=== PATIENT | female | born 1950 | race American Indian/Alaskan Native ===

== ENCOUNTER 2020-02-20 13:39 | Observation (INO) | payer MEDICARE ==
[2020-02-20 14:32] LABS: Basophils # (Auto) 0.1 K/mm3 (0.0-0.1); Basophils % (Auto) 0.8 % (0.0-1.8); Eosinophils # (Auto) 0.1 K/mm3 (0.0-0.4); Eosinophils % (Auto) 0.6 % (0.0-4.3); Hematocrit 29.5 % (30.3-42.9); Lymphocytes # (Auto) 1.2 K/mm3 (1.2-5.4); Lymphocytes % (Auto) 10.9 % (13.4-35.0); Mean Corpuscular HGB Conc 31 % (30-34); Mean Corpuscular Volume 95 fl (79-97); Monocytes # (Auto) 0.9 K/mm3 (0.0-0.8); Monocytes % (Auto) 7.9 % (0.0-7.3); Red Blood Count 3.11 M/mm3 (3.65-5.03)
[2020-02-20 14:36] LABS: Red Cell Distribution Width 20.2 % (13.2-15.2)
[2020-02-20 15:05] LABS: Platelet Count 164 K/mm3 (140-440)
[2020-02-20 15:18] LABS: Albumin 2.9 g/dL (3.9-5); Calcium 10.2 mg/dL (8.4-10.2)
--- NOTE | 2020-02-20 16:40 | Emergency Department Report ---
ED General Adult HPI - General Chief complaint: Recheck/Abnormal Lab/Rx Stated complaint: DIALYSIS Time Seen by Provider: 02/20/20 16:22 Source: EMS Mode of arrival: Stretcher Limitations: Physical Limitation - History of Present Illness Initial comments: Patient is 69 years old female with history of hypertension, diabetes and end- stage renal disease on hemodialysis. Patient brought to the emergency room via EMS from [place] [facility] for evaluation that patient missed her dialysis today. When asked the patient why did she miss her dialysis she stated that nobody woke up for dialysis today. Patient is currently denying any symptoms. She denies any shortness of breath, chest pain, fever or chills. -: days(s) - Related Data Home Medications Medication Instructions Recorded Confirmed Last Taken AtorvaSTATin [Lipitor] 20 mg PO QHS 08/05/15 08/05/15 Unknown Calcium Carbonate [Calcium 600MG 600 mg PO DAILY 08/05/15 08/05/15 Unknown TAB] Docusate Sodium [Colace CAP] 100 mg PO BID PRN 08/05/15 08/05/15 Unknown Ergocalciferol [Vitamin D2] 1 cap PO QWEEK 08/05/15 08/05/15 Unknown Insulin Glargine [Lantus VIAL] 10 unit SUB-Q QHS 08/05/15 08/05/15 Unknown Insulin Regular, Human Inj 0 unit SQ QAM 08/05/15 08/05/15 Unknown [NovoLIN R Inj] Magnesium Oxide [Mag-Ox] 400 mg PO QDAY 08/05/15 08/05/15 Unknown Metoclopramide HCl [Reglan TAB] 5 mg PO QID 08/05/15 08/05/15 Unknown Omeprazole [PriLOSEC] 40 mg PO QDAY 08/05/15 08/05/15 Unknown Promethazine [Phenergan] 25 mg PO Q6HR PRN 08/05/15 08/05/15 Unknown Sodium Bicarbonate 650 mg PO BID 08/05/15 08/05/15 Unknown Vit B Comp No.3/Folic/C/Biotin 1 each PO DAILY 08/05/15 08/05/15 Unknown [Antonette-Annette Rx Tablet] Warfarin [Coumadin] 5 mg PO QDAY 08/05/15 08/05/15 Unknown Warfarin [Coumadin] 7.5 mg PO QDAY 08/05/15 08/05/15 Unknown Previous Rx's Medication Instructions Recorded Last Taken Type AtorvaSTATin [Lipitor] 20 mg PO QHS tablet 08/07/15 Unknown Rx Allergies Allergy/AdvReac Type Severity Reaction Status Date / Time acetaminophen [From Percocet] Allergy Vomiting Verified 08/05/15 15:21 aspirin Allergy Unknown Verified 08/05/15 15:21 dipyridamole [From Aggrenox] Allergy Unknown Verified 08/05/15 15:21 egg Allergy Swelling Verified 08/05/15 14:58 influenza virus vaccine, Allergy Swelling Verified 08/05/15 14:57 specific [influenza virus vacc,specific] lactose Allergy Vomiting Verified 08/05/15 15:21 latex Allergy Rash Verified 08/05/15 15:21 meperidine HCl [From Demerol] Allergy Hives Verified 08/05/15 14:57 oxycodone HCl [From Percocet] Allergy Vomiting Verified 08/05/15 15:21 Penicillins Allergy Unknown Verified 08/05/15 14:57 ED Review of Systems ROS: Stated complaint: DIALYSIS Other details as noted in HPI Comment: All other systems reviewed and negative Constitutional: denies: chills, fever Respiratory: denies: cough, shortness of breath, SOB with exertion, SOB at rest, wheezing Cardiovascular: denies: chest pain, palpitations Gastrointestinal: denies: abdominal pain, nausea Neurological: denies: headache ED Past Medical Hx - Past Medical History Hx Hypertension: Yes Hx Diabetes: Yes (IDDM) Hx Renal Disease: Yes (ESRD w/ HD ,,Mon) Additional medical history: Afib, Anemia - Surgical History Additional Surgical History: Hysterectomy, Bilateral Rotator Cuff surgery, Vas Cath (Right upper Chest), Left arm fistula and AV graft - Social History Smoking Status: Current Some Day Smoker Substance Use Type: Alcohol - Medications Home Medications: Home Medications Medication Instructions Recorded Confirmed Last Taken Type AtorvaSTATin [Lipitor] 20 mg PO QHS 08/05/15 08/05/15 Unknown History Calcium Carbonate [Calcium 600MG 600 mg PO DAILY 08/05/15 08/05/15 Unknown History TAB] Docusate Sodium [Colace CAP] 100 mg PO BID PRN 08/05/15 08/05/15 Unknown History Ergocalciferol [Vitamin D2] 1 cap PO QWEEK 08/05/15 08/05/15 Unknown History Insulin Glargine [Lantus VIAL] 10 unit SUB-Q QHS 08/05/15 08/05/15 Unknown History Insulin Regular, Human Inj 0 unit SQ QAM 08/05/15 08/05/15 Unknown History [NovoLIN R Inj] Magnesium Oxide [Mag-Ox] 400 mg PO QDAY 08/05/15 08/05/15 Unknown History Metoclopramide HCl [Reglan TAB] 5 mg PO QID 08/05/15 08/05/15 Unknown History Omeprazole [PriLOSEC] 40 mg PO QDAY 08/05/15 08/05/15 Unknown History Promethazine [Phenergan] 25 mg PO Q6HR PRN 08/05/15 08/05/15 Unknown History Sodium Bicarbonate 650 mg PO BID 08/05/15 08/05/15 Unknown History Vit B Comp No.3/Folic/C/Biotin 1 each PO DAILY 08/05/15 08/05/15 Unknown History [Antonette-Annette Rx Tablet] Warfarin [Coumadin] 5 mg PO QDAY 08/05/15 08/05/15 Unknown History Warfarin [Coumadin] 7.5 mg PO QDAY 08/05/15 08/05/15 Unknown History AtorvaSTATin [Lipitor] 20 mg PO QHS tablet 08/07/15 Unknown Rx ED Physical Exam - General Limitations: Physical Limitation General appearance: alert, in no apparent distress - Head Head exam: Present: atraumatic, normocephalic, normal inspection - Eye Eye exam: Present: normal appearance - ENT ENT exam: Present: normal exam, normal orophraynx, mucous membranes moist - Neck Neck exam: Present: normal inspection, full ROM. Absent: tenderness, meningismus - Respiratory Respiratory exam: Present: normal lung sounds bilaterally - Cardiovascular Cardiovascular Exam: Present: regular rate, systolic murmur - GI/Abdominal GI/Abdominal exam: Present: soft. Absent: distended, tenderness, guarding, rebound - Neurological Exam Neurological exam: Present: alert, oriented X3 - Psychiatric Psychiatric exam: Present: normal mood - Skin Skin exam: Present: warm, intact, normal color ED Course Vital Signs 02/20/20 02/20/20 02/20/20 14:01 14:06 14:16 Temperature 97.5 F L Pulse Rate 74 Respiratory 18 18 Rate Blood Pressure 134/57 O2 Sat by Pulse 95 95 100 Oximetry 02/20/20 02/20/20 02/20/20 14:26 14:30 14:36 Temperature Pulse Rate Respiratory Rate Blood Pressure 143/48 136/46 136/46 O2 Sat by Pulse 100 96 100 Oximetry 02/20/20 02/20/20 02/20/20 14:40 14:45 14:52 Temperature Pulse Rate Respiratory Rate Blood Pressure 136/46 102/27 102/27 O2 Sat by Pulse 98 99 76 L Oximetry 02/20/20 02/20/20 02/20/20 14:56 15:01 15:06 Temperature Pulse Rate Respiratory Rate Blood Pressure 102/27 103/37 103/37 O2 Sat by Pulse 94 100 Oximetry 02/20/20 02/20/20 02/20/20 15:10 15:15 15:20 Temperature Pulse Rate Respiratory Rate Blood Pressure 103/37 103/36 103/36 O2 Sat by Pulse 100 98 99 Oximetry 02/20/20 02/20/20 02/20/20 15:26 15:30 15:36 Temperature Pulse Rate Respiratory Rate Blood Pressure 103/36 111/39 111/39 O2 Sat by Pulse 100 100 100 Oximetry 02/20/20 02/20/20 02/20/20 15:40 15:45 15:50 Temperature Pulse Rate Respiratory Rate Blood Pressure 127/72 119/36 119/36 O2 Sat by Pulse 90 99 99 Oximetry 02/20/20 15:56 Temperature Pulse Rate Respiratory Rate Blood Pressure 119/36 O2 Sat by Pulse 98 Oximetry ED Medical Decision Making - Lab Data Result diagrams: 02/20/20 14:11 02/20/20 14:11 - Medical Decision Making Patient is 69 years old female with history of hypertension, diabetes and end- stage renal disease on hemodialysis. Patient brought to the emergency room via EMS from [place] [facility] for evaluation that patient missed her dialysis today. When asked the patient why did she miss her dialysis she stated that nobody woke up for dialysis today. Patient is currently denying any symptoms. She denies any shortness of breath, chest pain, fever or chills. Labs reviewed and showed a potassium of 5.6. I discussed the patient with Dr. Covarrubias, ingot weigher, she stated that she will put dialysis order. I discussed the patient with Dr. Armando, he agreed to admit the patient to medical service for further management. Critical Care Time: Yes Critical care time in (mins) excluding proc time.: 30 Critical care attestation.: If time is entered above; I have spent that time in minutes in the direct care of this critically ill patient, excluding procedure time. ED Disposition Clinical Impression: Acute hyperkalemia, End-stage renal disease needing dialysis Disposition: OP ADMIT IP TO THIS HOSP Is pt being admited?: Yes Condition: Stable Referrals: PRIMARY CARE, [Primary Care Provider] - 3-5 Days
[2020-02-20] MEDS ORDERED: SODIUM CHLORIDE 0.9% 100 ML IV PRN (16:51)
[2020-02-20] MEDS ORDERED: ONDANSETRON 4 MG/2 ML INJ IV PRN (17:14)
[2020-02-20] MEDS ORDERED: MAGNESIUM HYDROXIDE (MOM) ORAL LIQD UDC PO PRN (17:14)
[2020-02-20 19:07] LABS: Hepatitis B Surface Antigen Non-Reactive (Negative); Hepatitis C Virus Antibody Non-Reactive (NonReactive)
--- NOTE | 2020-02-20 20:47 | History and Physical Report ---
History of Present Illness Date of admission: 02/20/20 17:14 Chief complaint: Nobody woke my up to go get dialysis History of present illness: 69 YO Female Longterm Facility Resident at [facility] with ESRD on HD(T,R,Sa), DM, GERD, HLD, Nicotine Dependence, Atrial Fib on t herapeutic anticoagulation, Anemia of chronic disease presents to ED for evaluation. Pt states that she missed her routine scheduled dialysis session today. Patient states that "no one woke me up" EMS was notified and upon arrival the patient was found to have missed her routine dialysis session. Patient transported to [facility] for further care and evaluation. Patient seen and evaluated in the emergency department. Lab and imaging studies reviewed. Patient found to have end-stage renal disease in need of dialysis. Nephrology team consulted in ED. Patient placed in observation status and admitted to medical floor for further evaluation. Patient denies fever, chills, chest pain, palpitations, shortness of breath, productive cough, recent ill contacts, or known exposure to COVID-19. No prior admission for review. All medication listed at time of admission has been reconciled. Advanced care planning conducted in ED. Past History Past Medical History: atrial fib, diabetes, ESRD, GERD Past Surgical History: hysterectomy, Other ( Bilateral Rotator Cuff surgery, Vas Cath (Right upper Chest), Left arm fistula and AV graft) Social history: , smoking. denies: alcohol abuse, prescription drug abuse Family history: hypertension Medications and Allergies Allergies Allergy/AdvReac Type Severity Reaction Status Date / Time acetaminophen [From Percocet] Allergy Vomiting Verified 08/05/15 15:21 aspirin Allergy Unknown Verified 08/05/15 15:21 dipyridamole [From Aggrenox] Allergy Unknown Verified 08/05/15 15:21 egg Allergy Swelling Verified 08/05/15 14:58 influenza virus vaccine, Allergy Swelling Verified 08/05/15 14:57 specific [influenza virus vacc,specific] lactose Allergy Vomiting Verified 08/05/15 15:21 latex Allergy Rash Verified 08/05/15 15:21 meperidine HCl [From Demerol] Allergy Hives Verified 08/05/15 14:57 oxycodone HCl [From Percocet] Allergy Vomiting Verified 08/05/15 15:21 Penicillins Allergy Unknown Verified 08/05/15 14:57 Home Medications Medication Instructions Recorded Confirmed Last Taken Type AtorvaSTATin [Lipitor] 20 mg PO QHS 08/05/15 08/05/15 Unknown History Calcium Carbonate [Calcium 600MG 600 mg PO DAILY 08/05/15 08/05/15 Unknown History TAB] Docusate Sodium [Colace CAP] 100 mg PO BID PRN 08/05/15 08/05/15 Unknown History Ergocalciferol [Vitamin D2] 1 cap PO QWEEK 08/05/15 08/05/15 Unknown History Insulin Glargine [Lantus VIAL] 10 unit SUB-Q QHS 08/05/15 08/05/15 Unknown Histo ry Insulin Regular, Human Inj 0 unit SQ QAM 08/05/15 08/05/15 Unknown History [NovoLIN R Inj] Magnesium Oxide [Mag-Ox] 400 mg PO QDAY 08/05/15 08/05/15 Unknown History Metoclopramide HCl [Reglan TAB] 5 mg PO QID 08/05/15 08/05/15 Unknown History Omeprazole [PriLOSEC] 40 mg PO QDAY 08/05/15 08/05/15 Unknown History Promethazine [Phenergan] 25 mg PO Q6HR PRN 08/05/15 08/05/15 Unknown History Sodium Bicarbonate 650 mg PO BID 08/05/15 08/05/15 Unknown History Vit B Comp No.3/Folic/C/Biotin 1 each PO DAILY 08/05/15 08/05/15 Unknown History [Antonette-Annette Rx Tablet] Warfarin [Coumadin] 5 mg PO QDAY 08/05/15 08/05/15 Unknown History Warfarin [Coumadin] 7.5 mg PO QDAY 08/05/15 08/05/15 Unknown History AtorvaSTATin [Lipitor] 20 mg PO QHS tablet 08/07/15 Unknown Rx Active Meds: Active Medications Bisacodyl (Dulcolax) 10 mg MS QDAY PRN PRN Reason: Constipation unrelieved by MOM Folic Acid (Folvite) 1 mg PO QDAY [facility] Sodium Chloride (Nacl 0.9%) 100 mls @ 999 mls/hr IV ANGY PRN PRN Reason: Hypotension Magnesium Hydroxide (Milk Of Magnesia) 30 ml PO Q4H PRN PRN Reason: Constipation Multivitamins (Theragran Tab) 1 each PO QDAY [facility] Ondansetron HCl (Zofran) 4 mg IV Q8H PRN PRN Reason: Nausea And Vomiting Senna (Senokot) 17.2 mg PO QHS BRANDIN Review of Systems Constitutional: no weight loss, no weight gain, no fever, no chills Ears, nose, mouth and throat: no ear pain, no ear discharge, no tinnitis, no nose pain, no nasal congestion, no nasal discharge Breasts: no change in shape Cardiovascular: no chest pain, no orthopnea, no palpitations, no edema Respiratory: no cough, no excessive sputum, no hemoptysis, no shortness of breath Gastrointestinal: no abdominal pain, no vomiting, no diarrhea, no constipation Genitourinary Female: no pelvic pain, no flank pain, no dysuria, no urinary frequency, no urgency Rectal: no pain, no incontinence, no bleeding Musculoskeletal: no neck stiffness, no low back pain, no shooting leg pain Integumentary: no rash, no redness, no wounds, no jaundice Neurological: no transient paralysis, no weakness, no numbness, no seizures, no syncope Psychiatric: no anxiety, no sleep disturbances, no hypersomnia, no change in libido, no suicidal ideation, no disorientation Endocrine: no cold intolerance, no excessive thirst Hematologic/Lymphatic: no easy bruising, no easy bleeding, no lymphadenopathy Allergic/Immunologic: no wheezing, no persistent infections, no angioedema Exam - Constitutional Vitals: Temp Pulse Resp BP Pulse Ox 98.8 F 72 18 105/45 100 02/20/20 17:35 02/20/20 20:15 02/20/20 17:35 02/20/20 20:15 02/20/20 17:10 General appearance: Present: no acute distress, well-nourished - EENT Eyes: Present: PERRL ENT: hearing intact, clear oral mucosa - Neck Neck: Present: supple, normal ROM - Respiratory Respiratory effort: normal Respiratory: bilateral: CTA - Cardiovascular Heart Sounds: Present: S1 & S2. Absent: rub, click - Extremities Extremities: pulses symmetrical, No edema Peripheral Pulses: within normal limits - Abdominal General gastrointestinal: Present: soft, non-tender, non-distended, normal bowel sounds Female genitourinary: Present: normal - Integumentary Integumentary: Present: clear, warm, dry - Musculoskeletal Musculoskeletal: gait normal, strength equal bilaterally - Psychiatric Psychiatric: appropriate mood/affect, intact judgment & insight - Neurologic Neurologic: CNII-XII intact, moves all extremities Results - Labs CBC & Chem 7: 02/20/20 14:11 02/20/20 14:11 Labs: Abnormal lab results 02/20/20 02/20/20 Range/Units 14:11 14:11 RBC 3.11 L (3.65-5.03) M/mm3 Hgb 9.0 L (10.1-14.3) gm/dl Hct 29.5 L (30.3-42.9) % RDW 20.2 H (13.2-15.2) % Lymph % (Auto) 10.9 L (13.4-35.0) % Lucas % (Auto) 7.9 H (0.0-7.3) % Lucas # 0.9 H (0.0-0.8) K/mm3 Seg Neutrophils % 79.8 H (40.0-70.0) % Seg Neutrophils # 8.6 H (1.8-7.7) K/mm3 Potassium 5.6 H (3.6-5.0) mmol/L BUN 34 H (7-17) mg/dL Creatinine 7.5 H (0.6-1.2) mg/dL Glucose 216 H (65-100) mg/dL ALT 5 L (7-56) units/L Alkaline Phosphatase 130 H (35-129) units/L Albumin 2.9 L (3.9-5) g/dL Assessment and Plan - Patient Problems (1) End stage renal disease Current Visit: No Status: Chronic Plan to address problem: Dialysis as per renal team, Nephrology consulted in ED, (2) Atrial fibrillation Current Visit: Yes Status: Acute Qualifiers: Atrial fibrillation type: persistent (not longstanding) Qualified Code(s): I48.19 - Other persistent atrial fibrillation; I48.1 - Persistent atrial fibrillation Plan to address problem: continue therapeutic anticoagulation, continue current therapy, rate controlled (3) Diabetes Current Visit: Yes Status: Acute Plan to address problem: consistent carbohydrate diet, sliding scali insulin, accu check, (4) HTN (hypertension) Current Visit: Yes Status: Acute Qualifiers: Hypertension type: essential hypertension Qualified Code(s): I10 - Essential (primary) hypertension Plan to address problem: monitor bp q shift, continue medical management (5) GERD (gastroesophageal reflux disease) Current Visit: Yes Status: Acute Qualifiers: Esophagitis presence: without esophagitis Qualified Code(s): K21.9 - Gastro-esophageal reflux disease without esophagitis Plan to address problem: ppi therapy, supportive care. (6) DVT prophylaxis Current Visit: Yes Status: Acute Plan to address problem: SCD to BLE while in bed, continue anticoagulation (7) Advance care planning Current Visit: Yes Status: Acute Plan to address problem: Pt is full code, disease education conducted, prognosis discussed, +30 minutes
[2020-02-20] MEDS ORDERED: SENNOSIDES 8.6 MG TAB PO SCH (22:00)
[2020-02-21 06:05] LABS: Calcium 9.8 mg/dL (8.4-10.2)
[2020-02-21] MEDS ORDERED: MULTIVITAMINS ,THERAPEUTIC TAB PO SCH (10:00)
[2020-02-21] MEDS ORDERED: FOLIC ACID 1 MG TAB PO SCH (10:00)
--- NOTE | 2020-02-21 11:00 | Consultation ---
History of Present Illness - Reason for Consult Consult date: 02/21/20 end stage renal disease - History of Present Illness Patient is 69 years old female with history of hypertension, diabetes and end- stage renal disease on hemodialysis at [facility]. Patient brought to the emergency room via EMS from long-term for evaluation that patient missed her dialysis. When asked the patient why did she miss her dialysis she stated that nobody woke up for dialysis. She was admitted yesterday and received dialysis. Presently, patient complains of RLE pain. Past History Past Medical History: atrial fib, diabetes, ESRD, GERD Past Surgical History: hysterectomy, Other ( Bilateral Rotator Cuff surgery, Vas Cath (Right upper Chest), Left arm fistula and AV graft) Social history: , smoking. denies: alcohol abuse, prescription drug abuse Family history: hypertension Medications and Allergies Allergies Allergy/AdvReac Type Severity Reaction Status Date / Time acetaminophen [From Percocet] Allergy Vomiting Verified 08/05/15 15:21 aspirin Allergy Unknown Verified 08/05/15 15:21 dipyridamole [From Aggrenox] Allergy Unknown Verified 08/05/15 15:21 egg Allergy Swelling Verified 08/05/15 14:58 influenza virus vaccine, Allergy Swelling Verified 08/05/15 14:57 specific [influenza virus vacc,specific] lactose Allergy Vomiting Verified 08/05/15 15:21 latex Allergy Rash Verified 08/05/15 15:21 meperidine HCl [From Demerol] Allergy Hives Verified 08/05/15 14:57 oxycodone HCl [From Percocet] Allergy Vomiting Verified 08/05/15 15:21 Penicillins Allergy Unknown Verified 08/05/15 14:57 Home Medications Medication Instructions Recorded Confirmed Last Taken Type AtorvaSTATin [Lipitor] 20 mg PO QHS 08/05/15 08/05/15 Unknown History Calcium Carbonate [Calcium 600MG 600 mg PO DAILY 08/05/15 08/05/15 Unknown History TAB] Docusate Sodium [Colace CAP] 100 mg PO BID PRN 08/05/15 08/05/15 Unknown History Ergocalciferol [Vitamin D2] 1 cap PO QWEEK 08/05/15 08/05/15 Unknown History Insulin Glargine [Lantus VIAL] 10 unit SUB-Q QHS 08/05/15 08/05/15 Unknown History Insulin Regular, Human Inj 0 unit SQ QAM 08/05/15 08/05/15 Unknown History [NovoLIN R Inj] Magnesium Oxide [Mag-Ox] 400 mg PO QDAY 08/05/15 08/05/15 Unknown History Metoclopramide HCl [Reglan TAB] 5 mg PO QID 08/05/15 08/05/15 Unknown History Omeprazole [PriLOSEC] 40 mg PO QDAY 08/05/15 08/05/15 Unknown History Promethazine [Phenergan] 25 mg PO Q6HR PRN 08/05/15 08/05/15 Unknown History Sodium Bicarbonate 650 mg PO BID 08/05/15 08/05/15 Unknown History Vit B Comp No.3/Folic/C/Biotin 1 each PO DAILY 08/05/15 08/05/15 Unknown History [Antonette-Annette Rx Tablet] Warfarin [Coumadin] 5 mg PO QDAY 08/05/15 08/05/15 Unknown History Warfarin [Coumadin] 7.5 mg PO QDAY 08/05/15 08/05/15 Unknown History AtorvaSTATin [Lipitor] 20 mg PO QHS tablet 08/07/15 Unknown Rx Active Meds: Active Medications Bisacodyl (Dulcolax) 10 mg NE QDAY PRN PRN Reason: Constipation unrelieved by MOM Folic Acid (Folvite) 1 mg PO QDAY [facility] Sodium Chloride (Nacl 0.9%) 100 mls @ 999 mls/hr IV ANGY PRN PRN Reason: Hypotension Magnesium Hydroxide (Milk Of Magnesia) 30 ml PO Q4H PRN PRN Reason: Constipation Multivitamins (Theragran Tab) 1 each PO QDAY [facility] Ondansetron HCl (Zofran) 4 mg IV Q8H PRN PRN Reason: Nausea And Vomiting Senna (Senokot) 17.2 mg PO QHS [facility] Last Admin: 02/20/20 22:44 Dose: 17.2 mg Documented by: Review of Systems All systems: negative Exam - Vital Signs Vital signs: Vital Signs Temp Pulse Resp BP Pulse Ox 97.5 F L 74 18 134/57 95 02/20/20 14:01 02/20/20 14:01 02/20/20 14:01 02/20/20 14:01 02/20/20 14:01 - General Appearance General appearance: well-developed, frail EENT: ATNC Respiratory: Clear to Ascultation Heart: regular, S1S2 Gastrointestinal: Present: normal. Absent: tenderness, distended Musculoskeletal: Present: other (RLE bandaged) Results - Lab Results 02/20/20 14:11 02/21/20 05:25 Most recent lab results Calcium 9.8 mg/dL (8.4-10.2) 02/21/20 05:25 Assessment and Plan Impression: * End stage renal disease (TTS at [facility]) * Hyperkalemia, mild - resolved * Atrial fibrillation on chronic anticoagulation * Anemia secondary to ESRD * Secondary hyperparathyroidism Plan * Patient is s/p dialysis yesterday * No acute need for HD today * Continue HD TTS schedule * UF as tolerated * Epogen TIW prn * Renal diet
[2020-02-21 11:32] VITALS: BP 146/51
--- NOTE | 2020-02-21 15:07 | Discharge Summary ---
Providers - Providers Date of Admission: 02/20/20 17:14 Attending physician: HALEIGH DANIEL 02/20/20 16:51 Consult to Physician [CONS] Stat Comment: Consulting Provider: DWIGHT VILLALOBOS Physician Instructions: Reason For Exam: End-stage renal disease needing dialysis, hyperkal 02/21/20 10:55 Consult to Wound/ET Nurse [CONS] Routine Reason For Exam: wound eval to right leg and foot Primary care physician: LILI BLOUNT Hospitalization Condition: Stable - Discharge Diagnoses (1) End stage renal disease Status: Chronic (2) Atrial fibrillation Status: Acute Qualifiers: Atrial fibrillation type: persistent (not longstanding) Qualified Code(s): I48.19 - Other persistent atrial fibrillation; I48.1 - Persistent atrial fibrillation (3) Diabetes Status: Acute (4) HTN (hypertension) Status: Acute Qualifiers: Hypertension type: essential hypertension Qualified Code(s): I10 - Essent ial (primary) hypertension (5) GERD (gastroesophageal reflux disease) Status: Acute Qualifiers: Esophagitis presence: without esophagitis Qualified Code(s): K21.9 - Gastro-esophageal reflux disease without esophagitis (6) DVT prophylaxis Status: Acute (7) Advance care planning Status: Acute Exam - Constitutional Vitals: Temp Pulse Resp BP Pulse Ox 98.3 F 93 H 18 146/51 100 02/21/20 11:15 02/21/20 11:15 02/21/20 11:15 02/21/20 11:15 02/21/20 11:15 Plan Follow up with: JOSÉ MIGUEL POWELL MD [Referring] - 3-5 Days
== END 2020-02-21 18:44 ==
LOC: ED 13:39 → 3A 17:14 → 3B-SURG 18:53
PROVIDERS: ADMIT Internal Medicine; ATTEND Internal Medicine
DX: I12.0 Hypertensive chronic kidney disease with stage 5 chronic kidney disease or end stage renal disease (principal); N18.6 End stage renal disease; I48.91 Unspecified atrial fibrillation; E11.9 Type 2 diabetes mellitus without complications; K21.9 Gastro-esophageal reflux disease without esophagitis; E87.5 Hyperkalemia; D64.9 Anemia, unspecified; F17.200 Nicotine dependence, unspecified, uncomplicated; Z99.2 Dependence on renal dialysis; Z90.710 Acquired absence of both cervix and uterus; Z79.899 Other long term (current) drug therapy; Z79.82 Long term (current) use of aspirin; Z79.4 Long term (current) use of insulin; Z79.01 Long term (current) use of anticoagulants
CPT/HCPCS: 36415; 80048; 80053; 80074; 85025; 99291; G0378